=== PATIENT | female | born 1945 | race Two or more races ===

== ENCOUNTER 2017-11-02 10:35 | Outpatient (CLI) | payer OTHER | END 2017-11-02 10:53 | disposition home or self-care (01) | LOC: RX STUDY 10:35 | DX: R32 Unspecified urinary incontinence (principal) | CPT/HCPCS: 51600; 74455; Q9965 ==

== ENCOUNTER 2017-11-02 10:38 | Outpatient (CLI) | payer OTHER | END 2017-11-02 10:52 | disposition home or self-care (01) | LOC: MAMO-SONO 10:38 | DX: Z12.31 Encounter for screening mammogram for malignant neoplasm of breast (principal); Z87.898 Personal history of other specified conditions; N20.0 Calculus of kidney; N20.1 Calculus of ureter ==

== ENCOUNTER 2018-08-25 07:13 | Day surgery (SDC) | payer OTHER ==
[~2018-08-25 07:13] MED LIST: CALTRATE 600 +1 EACH PO; DEPAKOTE ER500 MG PO; DITROPAN5 MG PO; FOLIC ACID1 MG PO; GLIPIZIDE10 MG PO; NEURONTIN300 MG PO; SYNTHROID100 MCG PO; TAMS0.4C PO; ZESTRIL5 MG PO; [UNRECOGNIZED DRUG - OTHER] PO
== END 2018-08-25 14:30 | disposition home or self-care (01) ==
LOC: CIR.AMB 07:13
DX: N72 Inflammatory disease of cervix uteri (principal)

== ENCOUNTER 2018-10-17 13:39 | Outpatient (CLI) | payer OTHER | END 2018-10-17 13:44 | disposition home or self-care (01) | LOC: EKG 13:39 | DX: I10 Essential (primary) hypertension (principal) ==

== ENCOUNTER 2020-06-25 06:08 | Day surgery (SDC) | payer OTHER ==
[~2020-06-25 06:08] MED LIST changes: +GABAPENTIN PO; +SYNTHROID150 MCG PO; +VASOTEC5 MG PO; +VITAMIN D3 PO
== END 2020-06-25 16:05 | disposition home or self-care (01) ==
LOC: CIR.AMB 06:08
PROVIDERS: ATTEND Obstetrics & Gynecology
DX: C54.1 Malignant neoplasm of endometrium (principal); Z20.828 Contact with and (suspected) exposure to other viral communicable diseases

== ENCOUNTER 2020-07-17 08:10 | Outpatient (CLI) | payer OTHER | END 2020-07-17 08:13 | disposition home or self-care (01) | LOC: NUCLEAR 08:10 | PROVIDERS: ATTEND Obstetrics & Gynecology | DX: C54.1 Malignant neoplasm of endometrium (principal) | CPT/HCPCS: 78815; A9552 ==

== ENCOUNTER 2020-09-18 08:00 | Inpatient (IN) | payer OTHER ==
[~2020-09-18] VITALS: Ht 162.6 cm; Wt 74.8 kg
== END 2020-09-27 11:11 | disposition home or self-care (01) | DRG 741 ==
LOC: O/R 09-25 05:48 → OB/GYN 09-25 05:48
PROVIDERS: ADMIT Obstetrics & Gynecology Gynecologic Oncology; ATTEND Obstetrics & Gynecology Gynecologic Oncology
PROC: 0UT24ZZ Resection of Bilateral Ovaries, Percutaneous Endoscopic Approach (ICD-10-PCS; 2020-09-25)
PROC: 0UB74ZZ Excision of Bilateral Fallopian Tubes, Percutaneous Endoscopic Approach (ICD-10-PCS; 2020-09-25)
PROC: 07BC4ZX Excision of Pelvis Lymphatic, Percutaneous Endoscopic Approach, Diagnostic (ICD-10-PCS; 2020-09-25)
PROC: 0UT94ZZ Resection of Uterus, Percutaneous Endoscopic Approach (ICD-10-PCS; principal; 2020-09-25 10:30)
DX: C54.1 Malignant neoplasm of endometrium (principal); N83.8 Other noninflammatory disorders of ovary, fallopian tube and broad ligament

== ENCOUNTER 2021-04-10 12:07 | Emergency (ER) | payer OTHER ==
[~2021-04-10] VITALS: Ht 157.5 cm; Wt 77.1 kg
[2021-04-10] MEDS ORDERED: NEURONTIN300 MG (12:21)
[2021-04-10] MEDS ORDERED: CIPRO500 MG PO (18:55)
== END 2021-04-10 19:14 | disposition home or self-care (01) ==
LOC: ER 12:07
DX: N93.8 Other specified abnormal uterine and vaginal bleeding (principal)

== ENCOUNTER 2021-12-09 10:17 | Emergency (ER) | payer OTHER ==
[~2021-12-09] VITALS: Ht 162.6 cm; Wt 70.8 kg
[~2021-12-09 10:17] MED LIST changes: +CIPRO500 MG PO; +NEURONTIN300 MG
[2021-12-09] MEDS ORDERED: ALZ SR CAPLET1 EACH PO (10:48)
[2021-12-09] MEDS ORDERED: MEDROLPACK PO (14:15)
== END 2021-12-09 14:28 | disposition home or self-care (01) ==
LOC: ER 10:17
DX: M54.50 Low back pain, unspecified (principal)